=== PATIENT | male | born 2000 | race Caucasian/White ===

== ENCOUNTER 2020-02-12 12:24 | Emergency (ER) | payer SELFPAY ==
[~2020-02-12] VITALS: Ht 167.6 cm; Wt 82.0 kg
[2020-02-12] MEDS ORDERED: OXYCODONE HCL/ACETAMINOPHEN 5/325MG TABLET PO ONE (13:00)
[2020-02-12] MEDS ORDERED: TETANUS, DIPHTHERIA, PERTUSSIS VAC/PF 0.5ML (>7YR OLD) IM ONE (13:00)
[2020-02-12] MEDS ORDERED: AMOXICILLIN/POTASSIUM CLAVULANATE 875/125MG TAB PO ONE (13:00)
[2020-02-12 13:44] VITALS: BP 121/53
== END 2020-02-12 14:25 | disposition home or self-care (01) ==
LOC: ER 12:41
DX: S61.452A Open bite of left hand, initial encounter (principal); S61.451A Open bite of right hand, initial encounter; W54.0XXA Bitten by dog, initial encounter; Y93.89 Activity, other specified; Y92.89 Other specified places as the place of occurrence of the external cause
CPT/HCPCS: 90471; 90715; 99283